=== PATIENT | female | born 1980 | race Caucasian/White ===

== ENCOUNTER 2017-10-12 19:09 | Emergency (ER) | payer BC ==
[2017-10-12] MEDS ORDERED: Ondansetron INJ* 2 MG/ML VIAL ONE (20:30)
[2017-10-12] MEDS ORDERED: Morphine INJ* 4 MG/ML 1 ML CARPUJECT IV ONE ×2 (20:30→20:41)
[2017-10-12] MEDS ORDERED: Ondansetron INJ* 2 MG/ML VIAL IV ONE (20:41)
[2017-10-12] MEDS ORDERED: NS 0.9% 1000 ML*IV.FLUID IV ONE (20:41)
[2017-10-12] MEDS ORDERED: NS 0.9% 1000 ML* 1,000 ML IV ONE (20:45)
[2017-10-12] MEDS ORDERED: Pantoprazole IV* 40 MG IV ONE (20:45)
[2017-10-12 21:22] LABS: ABS Basophils 0 10^3/ul (0-0.2); ABS Eosinophils 0.1 10^3/ul (0-0.6); ABS Lymphocytes 2.4 10^3/ul (1.0-4.8); ABS Monocytes 0.7 10^3/ul (0-0.8); ABS Neutrophils 3.3 10^3/ul (1.5-7.7); ABS Nucleated RBC 0 10^3/ul; Hematocrit 29 % (35-47); Hemoglobin 9.4 g/dl (12.0-16.0); Lymphocyte % 36.3 % (25-47); Mean Corpuscular HGB Conc 32 g/dl (31-36); Mean Corpuscular Hemoglobin 23 pg (27-31); Mean Corpuscular Volume 72 fL (80-97); Mean Platelet Volume 8 um3 (7.4-10.4); Nucleated Red Blood Cells % 0; Platelet Count 273 10^3/ul (150-450); Red Blood Count 4.04 10^6/ul (4.0-5.4); Red Cell Distribution Width 19 % (10.5-15); White Blood Count 6.5 10^3/ul (3.5-10.8)
[2017-10-12 21:34] LABS: EGFR Non-African American 100.8 (>60)
[2017-10-12] MEDS ORDERED: Iohexol 300* (CONTRAST) 10 ML SDV IV ONE (22:46)
[2017-10-13] MEDS ORDERED: oxyCODONE/Acetamin 5/325 MG* TAB PO ONE (00:17)
--- NOTE | 2017-10-13 00:24 | ED ---
Tyrese Bush Thomas, scribed for Kendrick Brantley on 10/12/17 at 2030 . Abdominal Pain/Female - HPI Summary HPI Summary: The patient is a 36 year old female presenting to the emergency department complaining of epigastric abdominal pain for the last two hours. The pain is rated 9/10. The patient states she has an allergy to spinach and that her abdominal pain was aggravated by eating spinach. The patient additionally complains of nausea. The patient denies vomiting, and diarrhea. Past surgical history includes cholecystectomy. She had an endoscope performed six years ago that was negative. - History of Current Complaint Chief Complaint: EDAbdPain Stated Complaint: ALLERGIC REACTION Time Seen by Provider: 10/12/17 20:24 Hx Obtained From: Patient Hx Last Menstrual Period: 2 weeks ago Onset/Duration: Lasting Hours - 2, Still Present Severity Currently: Severe Pain Intensity: 9 Pain Scale Used: 0-10 Numeric Location: Epigastric Aggravating Factor(s): Other: - Spinach Associated Signs and Symptoms: Positive: Nausea. Negative: Fever, Vomiting, Diarrhea Allergies/Adverse Reactions: Allergies Allergy/AdvReac Type Severity Reaction Status Date / Time Phenothiazines Allergy Severe Swelling Verified 10/12/17 19:15 Of Face,Lips,& Throat Codeine Allergy MAKES Verified 10/12/17 19:15 ASTHMA WORSE Shellfish Allergy Allergy PER Verified 10/12/17 19:15 SURGICAL H&P ENVIRONMENTAL Allergy Hives Uncoded 10/12/17 19:15 IODINE?? Allergy POSSIBLE Uncoded 10/12/17 19:15 ALLERGY PER SURGICAL H&P spinach, fruit Allergy GI Upset Uncoded 10/12/17 19:15 PMH/Surg Hx/FS Hx/Imm Hx Cardiovascular History: Reports: Other Cardiovascular Problems/Disorders - BORN WITH HOLE IN HEART- OK NOW Respiratory History: Reports: Hx Asthma - WILL BRING INHALERS Denies: Other Respiratory Problems/Disorders GI History: Reports: Hx Gastroesophageal Reflux Disease Denies: Other GI Disorders Sensory History: Reports: Hx Contacts or Glasses Denies: Hx Hearing Aid Opthamlomology History: Reports: Hx Contacts or Glasses Neurological History: Reports: Hx Migraine - WORSE A TEEN, IMITREX PRN Denies: Other Neuro Impairments/Disorders Psychiatric History: Reports: Hx Anxiety - ON MEDS Denies: Hx Eating Disorder, Hx of Violent Episodes Against Others - Surgical History Surgery Procedure, Year, and Place: 2004, LAP BAND, [place]. G[place] , 2005, [place] [facility] [place] 2013. Hx Anesthesia Reactions: No Infectious Disease History: No Infectious Disease History: Denies: Traveled Outside the [place] in Last 30 Days - Family History Known Family History: Positive: Other - Patient was adopted, so FHx is unknown - Social History Alcohol Use: Occasionally Alcohol Amount: 2 glasses of wine with dinner Hx Substance Use: Yes Substance Use Type: Reports: None, Marijuana Substance Use Comment - Amount & Last Used: months ago Hx Tobacco Use: Yes - LIGHT, SOME DAYS SMOKER Smoking Status (MU): Never Smoked Tobacco Review of Systems Negative: Fever Positive: Abdominal Pain - epigastric, Nausea. Negative: Vomiting, Diarrhea All Other Systems Reviewed And Are Negative: Yes Physical Exam - Summary Physical Exam Summary: Appearance: Well appearing, no pain distress Skin: warm, dry, reflects adequate perfusion Head/face: normal Eyes: EOMI, PUJA ENT: normal Neck: supple, non-tender Respiratory: CTA, breath sounds present Cardiovascular: RRR, pulses symmetrical Abdomen: Soft. She is tender to her epigastric area. Bowel: present Musculoskeletal: normal, strength/ROM intact Neuro: normal, sensory motor intact, A&Ox3 Triage Information Reviewed: Yes Vital Signs On Initial Exam: Initial Vitals Temp Pulse Resp BP Pulse Ox 97.1 F 92 18 134/79 100 10/12/17 19:11 10/12/17 19:11 10/12/17 19:11 10/12/17 19:11 10/12/17 19:11 Vital Signs Reviewed: Yes Diagnostics - Vital Signs Vital Signs Temp Pulse Resp BP Pulse Ox 10/12/17 19:11 97.1 F 92 18 134/79 100 - Laboratory Lab Results: Lab Results 10/12/17 10/12/17 Range/Units 21:10 21:10 WBC 6.5 (3.5-10.8) 10^3/ul RBC 4.04 (4.0-5.4) 10^6/ul Hgb 9.4 L (12.0-16.0) g/dl Hct 29 L (35-47) % MCV 72 L (80-97) fL MCH 23 L (27-31) pg MCHC 32 (31-36) g/dl RDW 19 H (10.5-15) % Plt Count 273 (150-450) 10^3/ul MPV 8 (7.4-10.4) um3 Neut % (Auto) 50.6 (38-83) % Lymph % (Auto) 36.3 (25-47) % [place] % (Auto) 10.4 H (1-9) % Eos % (Auto) 2.0 (0-6) % Baso % (Auto) 0.7 (0-2) % Absolute Neuts (auto) 3.3 (1.5-7.7) 10^3/ul Absolute Lymphs (auto) 2.4 (1.0-4.8) 10^3/ul Absolute Monos (auto) 0.7 (0-0.8) 10^3/ul Absolute Eos (auto) 0.1 (0-0.6) 10^3/ul Absolute Basos (auto) 0 (0-0.2) 10^3/ul Absolute Nucleated RBC 0 10^3/ul Nucleated RBC % 0 Sodium 135 (133-145) mmol/L Potassium 3.3 L (3.5-5.0) mmol/L Chloride 104 (101-111) mmol/L Carbon Dioxide 26 (22-32) mmol/L Anion Gap 5 (2-11) mmol/L BUN 10 (6-24) mg/dL Creatinine 0.66 (0.51-0.95) mg/dL Est GFR ( Amer) 129.6 (>60) Est GFR (Non-Af Amer) 100.8 (>60) BUN/Creatinine Ratio 15.2 (8-20) Glucose 87 (70-100) mg/dL Calcium 8.3 L (8.6-10.3) mg/dL Total Bilirubin 0.20 (0.2-1.0) mg/dL AST 34 (13-39) U/L ALT 18 (7-52) U/L Alkaline Phosphatase 57 (34-104) U/L Troponin I 0.00 (<0.04) ng/mL Total Protein 6.5 (6.4-8.9) g/dL Albumin 3.7 (3.2-5.2) g/dL Globulin 2.8 (2-4) g/dL Albumin/Globulin Ratio 1.3 (1-3) Lipase 20 (11.0-82.0) U/L Beta HCG, Quant < 0.60 mIU/mL Result Diagrams: 10/12/17 21:10 10/12/17 21:10 Lab Statement: Any lab studies that have been ordered have been reviewed, and results considered in the medical decision making process. - CT CT Abd/Pel CT Interpretation: No Acute Changes - Ventral hernia containing omental fat. Dr. brantley has reviewed this report. CT Interpretation Completed By: Radiologist - EKG 20:46 Cardiac Rate: NL EKG Rhythm: Sinus Rhythm - at 76 BPM EKG Interpretation: No active changes. Re-Evaluation - Re-Evaluation First Eval Re-Evaluation Time: 23:58 Change: Unchanged Comment: The patient is still in pain. Abdominal Pain Fem Course/Dx - Course Course Of Treatment: The patient is a 36 year old female presenting to the emergency department complaining of epigastric abdominal pain for the last two hours. In the ED course the patient was given IV fluids, Zofran, and morphine. Bloodwork and urinalysis were obtained. CT Abd/Pel shows ventral hernia with omental fat. I consulted with Dr. Powers, surgery, who wants the patient to follow up as an outpatient. The patient does not want to be admitted because she has children at home. She will follow up as an outpatient with Dr. Powers and gastroenterology. - Diagnoses Differential Diagnosis: Positive: Appendicitis, Bowel Obstruction, Diverticulitis, Peptic Ulcer Disease, Renal Colic, Urinary Tract Infection Provider Diagnoses: Pain, abdominal, nonspecific - Provider Notifications Discussed Care Of Patient With: Delio Powers Time Discussed With Above Provider: 00:04 Instructed by Provider To: Other - Dr. Powers, surgery, says that there is no surgical intervention and that the patient should be discharged for outpatient follow-up. Discharge - Discharge Plan Condition: Stable Disposition: HOME Patient Education Materials: Abdominal Pain (ED) Referrals: Gerardo Nichols MD [Medical Doctor] - 3 Days Tj Ingram MD [Medical Doctor] - 3 Days Additional Instructions: Follow up with Dr. Nichols in three days. Follow up with Dr. Ingram, gastroenterology, in three days. Return to the emergency department for any new or worsening symptoms. The documentation as recorded by the Tyrese owens Thomas accurately reflects the service I personally performed and the decisions made by me, Kendrick Brantley.
[2017-10-13 00:25] VITALS: BP 113/75
--- NOTE | 2017-10-13 07:54 | RAD ---
CLINICAL HISTORY: Abdominal pain, rule out pancreatitis and diverticulitis COMPARISON: March 26, 2015 TECHNIQUE: Multiple contiguous axial CT scans were obtained of the abdomen and pelvis after the administration of intravenous contrast. Coronal and sagittal multiplanar reformations are submitted for review. Oral contrast was administered. Delayed images were obtained through the abdomen and pelvis. FINDINGS: LUNG BASES: The lung bases are clear. LIVER: The liver is diffusely low in attenuation compared to the spleen. There are no focal hepatic parenchymal masses. BILE DUCTS: There is no intrahepatic or extrahepatic biliary dilatation. GALLBLADDER: The gallbladder is not visualized. Surgical clips are noted in the gallbladder fossa. PANCREAS: The pancreas is normal, without mass or ductal dilatation. SPLEEN: Normal in size and appearance. UPPER GI TRACT: Evaluation of the gastrointestinal tract is limited by incomplete gastric distention. There is postsurgical change to the upper GI tract. SMALL BOWEL AND MESENTERY: The small bowel is normal in contour, course, and caliber. There is no obstruction or dilatation. COLON: The colon is normal in contour, course, caliber. There is no pericolonic inflammatory change. There is a tubular, vermiform, hollow viscus that is blind ending, and originates from the cecum, consistent with a normal appendix. There is no periappendiceal inflammatory change. This is best seen on axial images 41 through 52. ADRENALS: Normal bilaterally. KIDNEYS: The kidneys are normal in shape, size, contour, and axis. There is no hydronephrosis or nephrolithiasis. BLADDER: The bladder is smooth in contour. PELVIC ORGANS: The uterus and adnexa are grossly normal for technique. AORTA: The aorta is normal. IVC: Unremarkable LYMPH NODES: There is no lymphadenopathy by size criteria. ABDOMINAL WALL: There is a moderate-sized fat-containing ventral hernia, between the xiphoid in the umbilicus. BONES AND SOFT TISSUES: Unremarkable OTHER: None IMPRESSION: 1. FAT-CONTAINING VENTRAL HERNIA. 2. FATTY LIVER. 3. NORMAL APPENDIX. 4. NO PERICOLONIC OR PERIPANCREATIC INFLAMMATORY CHANGE.
== END 2017-10-13 00:34 | disposition home or self-care (01) ==
LOC: ED 19:09
DX: R10.13 Epigastric pain (principal); K43.9 Ventral hernia without obstruction or gangrene; K76.0 Fatty (change of) liver, not elsewhere classified; F17.200 Nicotine dependence, unspecified, uncomplicated; Z88.5 Allergy status to narcotic agent; Z88.8 Allergy status to other drugs, medicaments and biological substances
CPT/HCPCS: 36415; 74177; 80053; 82728; 83540; 83550; 83690; 84466; 84484; 84702; 85025; 93005; 96360; 96374; 96375; 99283; A9270-GY; J2270; J2405; Q9967

== ENCOUNTER 2019-07-11 09:04 | Emergency (ER) | payer BC ==
[2019-07-11] MEDS ORDERED: LORazepam TAB(*) 1 MG PO ONE (09:25)
--- OUTSIDE RECORDS SUMMARY | 2019-07-11 10:00 | XMS REPORT | Continuity of Care Document ---
:1980 External Reference #:[id number] Author Name Fallon Monae MD (transmitted by agent of provider Kathy Wood) Address [address], [address] [place] [address] Care Team Providers Name Role Phone Turner Vega MD - Family Care Team Information Bar Machine Operator Multiple Spindle [phone] Medicine Problems Active Problems Provider Date Polypharmacy Yudelka Epps NP Onset: 03/01/2019 Binge eating disorder Yudelka Epps NP Onset: 03/01/2019 Gastroesophageal reflux disease Yudelka Epps NP Onset: 03/01/2019 Social History Type Date Description Comments Sex Unknown Tobacco Use Start: Unknown Never Smoked Cigarettes Smoking Status Reviewed: 05/13/19 Never Smoked Cigarettes ETOH Use Occasionally consumes alcohol Tobacco Use Start: Unknown Patient has never smoked Recreational Drug Use Never Used Drugs Allergies, Adverse Reactions, Alerts Active Allergies Reaction Severity Comments Date Prednisolone Anxiety 03/01/2019 Promethazine Anaphylaxis 03/01/2019 Phenergan Anaphylaxis 03/01/2019 Shellfish-Derived Products 03/01/2019 Medications Active Medications SIG Qnty Indications Ordering Date Provider Peppermint Oil three times a day Other Ordering 03/08/2019 0.2-0.4ML Provider Ranitidine 150 Maximum 1-2 tablets at 30tabs Yudelka Epps 03/01/2019 Strength hour of sleep as FUR EXAMINER 150mg Tablets directed Tylenol 8 Hour as needed Unknown 650mg Tablets ER Albuterol Sulfate HFA 1 to 2 inhalations Unknown every 4 hours as 108(90Base) mcg/Act needed Aerosol Cyanocobalamin inject at first Unknown 1000mcg/ML sign of migraine, Solution may repeat in 1 hour if failed on oral. Vitamin Deficiency inject every month Unknown Injectable System-B12 as directed 1000mcg/ML Kit Amitriptyline HCL take 1 to 3 tabs Unknown 10mg by mouth at Tablets bedtime Asmanex Twisthaler 30 1 puff every day Unknown Metered Doses 110mcg/Inh Aerosol Methylphenidate HCL 1 by mouth every Unknown 20mg day Tablets Cyclobenzaprine HCL 1 by mouth at Unknown 5mg bedtime as needed Tablets for muscle spasm Sucralfate Take 1 Tablet By Unknown 1gm Tablets Mouth Up To 3 Times Per Day prn Epipen 2-Efrain Use as Directed Unknown 0.3mg/0.3ML Solution Auto-Inject Lorazepam Take 1/2 To 1 Unknown 1mg Tablets Tablet By Mouth Twice A Day as Directed Fluoxetine HCL Turner Vega 60mg A.MD Tablets Sumatriptan Succinate Inject AT First Unknown Sign Of Migraine, 6mg/0.5ML Solution May Repeat In 1 Auto-Inject Hour Pantoprazole Sodium once daily Turner Vega 40mg MD Jono Tablets [place] Sodium Trina Shaw 10mg Tablets Ondansetron Shira, 8mg Tablets Paula TITLE ATTORNEY Dispers Oxycodone-Acetaminophe Turner Vega n MD Jono 10-325mg Tablets Immunizations Description No Information Available Vital Signs Date Vital Result Comment 05/13/2019 7:16am Height 68 inches 5'8" Weight 270.00 lb Heart Rate 97 /min BP Systolic Sitting 120 mmHg BP Diastolic Sitting 80 mmHg O2 % BldC Oximetry 98 % BMI (Body Mass Index) 41.0 kg/m2 Neck Circumference in inches 17 03/01/2019 3:52pm Height 68 inches 5'8" Heart Rate 98 /min BP Systolic 136 mmHg BP Diastolic 87 mmHg O2 % BldC Oximetry 97 % Results Description No Information Available Procedures Description No Information Available Medical Devices Description No Information Available Encounters Type Date Location Provider Dx Diagnosis Office Visit 05/13/2019 Pul[facility]ology And Fallon Monae, G47.9 Sleep disorder, 7:30a [facility] Angiography Technologist R53.83 Other fatigue Office 03/01/2019 [facility] Gastroenterology Yudelka K21.0 Gastro-esophageal Visit 4:00p SPENCER Epps reflux disease with esophagitis R19.7 Diarrhea, unspecified R11.0 Nausea Z79.899 Other long term acute care registered nurse (current) drug therapy Z79.891 senior care (current) use of opiate analgesic Assessments Date Code Description Provider 05/13/2019 G47.9 Sleep disorder, unspecified Fallon Monae MD 05/13/2019 R53.83 Other fatigue Fallon Monae MD 03/01/2019 K21.0 Gastro-esophageal reflux disease with Yudelka Epps NP esophagitis 03/01/2019 R19.7 Diarrhea, unspecified Yudelka Epps, SPENCER 03/01/2019 R11.0 Nausea Yudelka Epps NP 03/01/2019 Z79.899 Other long term acute care registered nurse (current) drug therapy Yudelka Epps NP 03/01/2019 Z79.891 senior care (current) use of opiate analgesic Yudelka Epps NP Plan of Treatment Future Appointment(s):05/21/2019 9:15 am - Fallon Monae MD at [facility]09/20/2019 2:00 pm - Juan Hernandez M.D. at [facility]05/13/2019 - Fallon Monae MDG47.9 Sleep disorder, unspecifiedNew Orders:Home Sleep Testing, Ordered: 05/13/19Follow up:2 [id number] Other fatigue Functional Status Description No Information Available Mental Status Description No Information Available Referrals Description No Information Available
--- OUTSIDE RECORDS SUMMARY | 2019-07-11 10:00 | XMS REPORT | Continuity of Care Document ---
:1980 External Reference #:[id number] Author Name Fallon Monae MD (transmitted by agent of provider Kathy Wood) Address [address], [address] [place] [address] Care Team Providers Name Role Phone Turner Vega MD - Family Care Team Information Business Office Director [phone] Medicine Problems Active Problems Provider Date Polypharmacy Yudleka Epps NP Onset: 03/01/2019 Binge eating disorder Yudelka Epps NP Onset: 03/01/2019 Gastroesophageal reflux disease Yudelka Epps NP Onset: 03/01/2019 Social History Type Date Description Comments Sex Unknown Tobacco Use Start: Unknown Never Smoked Cigarettes Smoking Status Reviewed: 06/24/19 Never Smoked Cigarettes ETOH Use Occasionally consumes alcohol Tobacco Use Start: Unknown Patient has never smoked Recreational Drug Use Never Used Drugs Allergies, Adverse Reactions, Alerts Active Allergies Reaction Severity Comments Date Prednisolone Anxiety 03/01/2019 Promethazine Anaphylaxis 03/01/2019 Phenergan Anaphylaxis 03/01/2019 Shellfish-Derived Products 03/01/2019 Codeine short of breath 06/13/2019 Medications Active Medications SIG Qnty Indications Ordering Date Provider Suprep Bowel Prep Kit take according to 1units Yudelka Epps 06/01/2019 your physician's SOFTWARE ENGINEERING ASSOCIATE MANAGER 17.5-3.13-1.6GM/177ML instructions the Solution day before your procedure. split the dose as directed. Peppermint Oil three times a day Other Ordering 03/08/2019 0.2-0.4ML Provider Ranitidine 150 Maximum 1-2 tablets at hour 30tabs Yudelka Epps 2018 Strength of sleep as SOFTWARE ENGINEERING ASSOCIATE MANAGER 150mg Tablets directed Tylenol 8 Hour as [...] Amitriptyline HCL take 1 to 3 tabs by Unknown 10mg mouth at bedtime Tablets Asmanex Twisthaler 30 1 puff every day [...] as Directed Fluoxetine HCL Turner Vega 60mg MD Jono Tablets Sumatriptan Succinate Inject AT First Unknown Sign Of Migraine, 6mg/0.5ML Solution May Repeat In 1 Auto-Inject Hour Pantoprazole Sodium once daily Turner Vega 40mg Jono MD Tablets Trina Lim 10mg Tablets Ondansetron Shira, 8mg Tablets MARCELINO Mitchell Dispers Oxycodone-Acetaminophe Turner Vega n MD Jono 10-325mg Tablets Immunizations Description No Information Available Vital Signs Date Vital Result Comment 06/24/2019 10:39am Height 68 inches 5'8" Weight 281.00 lb Heart Rate 100 /min BP Systolic Sitting 136 mmHg BP Diastolic Sitting 80 mmHg O2 % BldC Oximetry 98 % BMI (Body Mass Index) 42.7 kg/m2 05/13/2019 7:16am Height 68 inches 5'8" Weight 270.00 lb Heart Rate 97 /min BP Systolic Sitting 120 mmHg BP Diastolic Sitting 80 mmHg O2 % BldC Oximetry 98 % BMI (Body Mass Index) 41.0 kg/m2 Neck Circumference in inches 17 Results Description No Information Available Procedures Date Code Description Status 06/10/2019 16066 Sleep Study Unattended,HRT Rate,Oxygen Sat,Resp Completed Effort/Airflow Medical Devices Description No Information Available Encounters Type Date Location Provider Dx Diagnosis Office Visit 05/13/2019 Pul[facility] And Fallon Monae, G47.9 Sleep disorder, 7:30a Sleep Services Of unspecified [facility] R53.83 Other fatigue Office 03/01/2019 [facility] Gastroenterology Yudelka K21.0 Gastro-esophageal Visit 4:00p SPENCER Epps reflux disease with esophagitis R19.7 Diarrhea, unspecified R11.0 Nausea Z79.899 Other residential (current) drug therapy Z79.891 [facility] (current) use of opiate analgesic Assessments Date Code Description Provider 06/24/2019 G47.33 Obstructive sleep apnea (adult) (pediatric) Fallon Monae MD 06/24/2019 R53.83 Other fatigue Fallon Monae MD 06/10/2019 G47.33 Obstructive sleep apnea (adult) (pediatric) Fallon Monae MD 05/13/2019 G47.9 Sleep disorder, unspecified Fallon Monae MD 05/13/2019 R53.83 Other fatigue Fallon Monae MD 03/01/2019 K21.0 Gastro-esophageal reflux disease with Yudelka Epps NP esophagitis 03/01/2019 R19.7 Diarrhea, unspecified Yudelka Epps NP 03/01/2019 R11.0 Nausea Yudelka Epps NP 03/01/2019 Z79.899 Other residential (current) drug therapy Yudelka Epps NP 03/01/2019 Z79.891 [facility] (current) use of opiate analgesic Yudelka Epps NP Plan of Treatment Future Appointment(s):08/05/2019 2:30 pm - Fatoumata Tee NP at [facility]07/20/2019 11:15 am - Tj Ingram MD at [facility] Qolydkwpgxvaqxwi70/07/2020 2:00 pm - Juan Hernandez M.D. at [facility]06/24/2019 - Fallon Monae MDG47.33 Obstructive sleep apnea (adult) (pediatric)Follow up:6 [id number] Other fatigue Functional Status Description No Information Available Mental Status Description No Information Available Referrals Description No Information Available
[2019-07-11 10:03] LABS: Hematocrit 31 % (35-47); Hemoglobin 10.2 g/dL (12.0-16.0); Mean Corpuscular HGB Conc 33 g/dL (31-36); Mean Corpuscular Hemoglobin 24 pg (27-31); Mean Corpuscular Volume 74 fL (80-97); Mean Platelet Volume 7.6 fL (7.4-10.4); Platelet Count 424 10^3/uL (150-450); Red Blood Count 4.25 10^6 /uL (3.70-4.87); Red Cell Distribution Width 18 % (10-15); White Blood Count 8.4 10^3/uL (3.5-10.8)
[2019-07-11 10:12] LABS: INR 0.97 (0.82-1.09)
--- NOTE | 2019-07-11 10:19 | ED ---
Lower Extremity - HPI Summary HPI Summary: 38-year-old female presents with swelling to the dizziness for the past day. States that she did have some right foot pain yesterday. She states the pain is minimal at this time. She states that her ankles have been swelling and hands did swell a little but has resolved. no recent travel. She is not on blood thinners thinners. No family history of blood clots. Denies any recent medication change. She is not currently on steroids. Has history of anxiety. no chest pain or SOB. never happened before. no injury. - History of Current Complaint Chief Complaint: EDExtremityLower Stated Complaint: EDEMA IN BOTH LEGS PER PT Time Seen by Provider: 07/11/19 09:18 Hx Last Menstrual Period: 2 weeks ago Pain Intensity: 1 - Allergies/Home Medications Allergies/Adverse Reactions: Allergies Allergy/AdvReac Type Severity Reaction Status Date / Time promethazine [From Phenergan] Allergy Severe Anaphylatic Verified 07/11/19 09:20 Shock codeine Allergy Shortness Verified 07/11/19 09:20 of Breath Phenothiazines Allergy Anaphylatic Verified 07/11/19 09:20 Shock prednisone Allergy Anxiety Verified 07/11/19 09:20 ENVIRONMENTAL Allergy Hives Uncoded 06/13/19 15:51 IODINE?? Allergy POSSIBLE Uncoded 06/13/19 15:51 ALLERGY PER SURGICAL H&P spinach, fruit AdvReac GI Upset Uncoded 06/13/19 15:51 PMH/Surg Hx/FS Hx/Imm Hx Endocrine/Hematology History: Denies: Hx Diabetes Cardiovascular History: Reports: Other Cardiovascular Problems/Disorders - BORN WITH HOLE IN HEART- OK NOW Denies: Hx Hypertension Respiratory History: Reports: Hx Asthma - WILL BRING INHALERS Denies: Other Respiratory Problems/Disorders GI History: Reports: Hx Gastroesophageal Reflux Disease Denies: Other GI Disorders History: Denies: Hx Dialysis, Hx Renal Disease Sensory History: Reports: Hx Contacts or Glasses Denies: Hx Hearing Aid Opthamlomology History: Reports: Hx Contacts or Glasses Neurological History: Reports: Hx Migraine - WORSE A TEEN, IMITREX PRN Denies: Other Neuro Impairments/Disorders Psychiatric History: Reports: Hx Anxiety - ON MEDS Denies: Hx Eating Disorder, Hx of Violent Episodes Against Others - Surgical History Surgery Procedure, Year, and Place: 2004, [place], [place]. GALL[place] , 2005, [place]. BAND PORT REPLACEMENT, [facility] [place]. gastric sleeve 2013. Hx Anesthesia Reactions: No Infectious Disease History: No Infectious Disease History: Denies: Traveled Outside the [place] in Last 30 Days - Family History Known Family History: Positive: None, Other - Patient was adopted, so FHx is unknown Family History: R & N/C - Social History Alcohol Use: Occasionally Alcohol Amount: 2 glasses of wine with dinner Hx Substance Use: Yes Substance Use Type: Reports: None Substance Use Comment - Amount & Last Used: months ago Hx Tobacco Use: Yes - LIGHT, SOME DAYS SMOKER Smoking Status (MU): Never Smoked Tobacco Review of Systems Negative: Fever Negative: Chest Pain Negative: Shortness Of Breath Positive: Myalgia - right foot pain All Other Systems Reviewed And Are Negative: Yes Physical Exam Triage Information Reviewed: Yes Vital Signs On Initial Exam: Initial Vitals Temp Pulse Resp BP Pulse Ox 97.8 F 119 18 138/110 98 07/11/19 09:05 07/11/19 09:05 07/11/19 09:05 07/11/19 09:05 07/11/19 09:05 Vital Signs Reviewed: Yes Appearance: Positive: Well-Appearing Skin: Positive: Warm, Dry Head/Face: Positive: Normal Head/Face Inspection Eyes: Positive: Normal, Conjunctiva Clear ENT: Positive: Pharynx normal Respiratory/Lung Sounds: Positive: Clear to Auscultation, Breath Sounds Present Cardiovascular: Positive: Normal, RRR Musculoskeletal: Positive: Strength/ROM Intact - right and left leg, Other - tenderness top of right foot, tenderness right calf, edema noted bilateral but worst on right, good pulses, Neurological: Positive: Normal Psychiatric: Positive: Normal Procedures - Sedation Patient Received Moderate/Deep Sedation with Procedure: No Diagnostics - Vital Signs Vital Signs Temp Pulse Resp BP Pulse Ox 07/11/19 09:52 18 07/11/19 09:05 97.8 F 119 18 138/110 98 - Laboratory Lab Results: Lab Results 07/11/19 07/11/19 Range/Units 09:40 09:40 WBC 8.4 (3.5-10.8) 10^3/uL RBC 4.25 (3.70-4.87) 10^6 /uL Hgb 10.2 L (12.0-16.0) g/dL Hct 31 L (35-47) % MCV 74 L (80-97) fL MCH 24 L (27-31) pg MCHC 33 (31-36) g/dL RDW 18 H (10-15) % Plt Count 424 (150-450) 10^3/uL MPV 7.6 (7.4-10.4) fL Neut % (Auto) Pending Lymph % (Auto) Pending [place] % (Auto) Pending Eos % (Auto) Pending Baso % (Auto) Pending Absolute Neuts (auto) Pending Absolute Lymphs (auto) Pending Absolute Monos (auto) Pending Absolute Eos (auto) Pending Absolute Basos (auto) Pending Absolute Nucleated RBC Pending Nucleated RBC % Pending INR (Anticoag Therapy) 0.97 (0.82-1.09) Result Diagrams: 07/11/19 09:40 07/11/19 09:40 Lab Statement: Any lab studies that have been ordered have been reviewed, and results considered in the medical decision making process. - Radiology foot Radiology Interpretation Completed By: Radiologist Summary of Radiographic Findings: IMPRESSION: 1. NO EVIDENCE FOR FRACTURE 2. MILD OSTEOARTHROPATHY ALONG THE DORSAL MIDFOOT. Lower Extremity Course/Dx - Course Course Of Treatment: 38-year-old female presents with swelling to the dizziness for the past day. States that she did have some right foot pain yesterday. She states the pain is minimal at this time. She states that her ankles have been swelling and hands did swell a little but has resolved. no recent travel. She is not on blood thinners thinners. No family history of blood clots. Denies any recent medication change. She is not currently on steroids. Has history of anxiety. no chest pain or SOB. never happened before. On exam edema to bilateral legs. Tenderness over her right foot. X-ray shows no fracture. wbc normal. tsh normal. h/h similiar to previous. bnp normal. venous u/s normal. urine no protein. explained no cause for edema found here. told to use compression socks and elevate. patient understand and agrees with plan. - Diagnoses Differential Diagnosis/HQI/PQRI: Positive: Fracture (Closed), Sprain, Strain Provider Diagnoses: Edema leg Discharge ED - Sign-Out/Discharge Documenting (check all that apply): Patient Departure - Discharge Plan Condition: Good Disposition: HOME Patient Education Materials: Leg Edema (ED) Referrals: Turner Vega MD [Primary Care Provider] - Additional Instructions: Use compression socks Ice Elevate Take Tylenol for pain every 6 hours Follow up with primary within 5 days Return to ED if develop any new or worsening symptoms - Billing Disposition and Condition Condition: GOOD Disposition: Home
[2019-07-11 10:20] LABS: ALT 41 U/L (7-52); AST 38 U/L (13-39); Albumin 3.9 g/dL (3.2-5.2); Albumin/Globulin Ratio 1.3 (1-3); Alkaline Phosphatase 81 U/L (34-104); Anion Gap 7 mmol/L (2-11); BUN/Creatinine Ratio 15.5 (8-20); Blood Urea Nitrogen 11 mg/dL (6-24); CO2 Carbon Dioxide 26 mmol/L (22-32); Calcium 8.9 mg/dL (8.6-10.3); Chloride 104 mmol/L (101-111); EGFR African American 110.9 (>60); EGFR Non-African American 91.6 (>60); Globulin 2.9 g/dL (2-4); Glucose 103 mg/dL (70-100); Potassium 3.8 mmol/L (3.5-5.0); Sodium 137 mmol/L (135-145); Total Protein 6.8 g/dL (6.4-8.9)
[2019-07-11 10:27] LABS: HCG Pregnancy < 0.60 mIU/mL
[2019-07-11 10:29] LABS: Microcytosis 1+
[2019-07-11 10:31] LABS: ABS Basophils 0.1 10^3/ul (0-0.2); ABS Eosinophils 0.5 10^3/ul (0-0.6); ABS Monocytes 0.8 10^3/ul (0-0.8); Eosinophil % 5.8 %
[2019-07-11 11:10] LABS: TSH (Thyroid Stimulating Horm) 1.96 mcIU/mL (0.34-5.60)
[2019-07-11 11:56] LABS: Urine Appearance Cloudy; Urine Bilirubin Negative (Negative); Urine Blood Negative (Negative); Urine Color Yellow; Urine Glucose Negative (Negative); Urine Ketones Negative (Negative); Urine Nitrite Negative (Negative); Urine Protein Negative (Negative); Urine Specific Gravity 1.017 (1.010-1.030); Urine Urobilinogen Negative (Negative)
[2019-07-11 12:11] VITALS: BP 144/90
== END 2019-07-11 12:03 | disposition home or self-care (01) ==
LOC: ED 09:04
DX: R60.0 Localized edema (principal); M19.071 Primary osteoarthritis, right ankle and foot; J45.909 Unspecified asthma, uncomplicated; K21.9 Gastro-esophageal reflux disease without esophagitis; F41.9 Anxiety disorder, unspecified; F17.210 Nicotine dependence, cigarettes, uncomplicated; Z88.5 Allergy status to narcotic agent; Z88.8 Allergy status to other drugs, medicaments and biological substances; Z98.84 Bariatric surgery status
CPT/HCPCS: 36415; 80053; 81003; 83880; 84443; 84702; 85025; 85610; 99283; A9270-GY